=== PATIENT | female | born 1985 | race Caucasian/White ===

== ENCOUNTER 2018-06-10 10:02 | Inpatient (IN) ==
--- NOTE | 2018-06-10 11:07 | ED ---
HPI General Chief Complaint: Psychiatric Symptoms Stated Complaint: psych eval Time Seen by Provider: 06/10/18 10:49 Source: patient Mode of arrival: ambulatory Limitations: no limitations History of Present Illness HPI Narrative: The patient is a 33-year-old female who presents to the emergency department via private vehicle for depression and suicidal ideation. The patient thinks she has a history of depression as a teenager, does have one previous attempt at suicide when she was a teenager by taking pills. The patient states her last several months she has had fluctuating depression, however, it has been worse over the last several days. The patient has been having suicidal thoughts over the last several days, states that she gathered all of her pill bottles at home including pain medications and thought about taking them in an attempt to kill herself. However, the patient came to the emergency department to seek treatment. The patient tried calling a psychiatrist on an outpatient basis, however, stated the psychiatrist were not taking new patients at this time. The patient was unable to obtain an appointment with her primary physician for several weeks. The patient denies any significant life stressors at home including changing job, changing marital status, or recent relocation. The patient does have 2 children at home, ages 5 and 9, the patient states she thought about her children prior to taking any pills, therefore, seeks help today in the emergency department. MD complaint: Reports suicidal ideation and feels depressed Onset (ago): week(s) Duration: changing over time and getting worse History of same: Yes Relieving factors: none Exacerbating factors: none Associated psychiatric symptoms: Reports depression and suicidal ideation Associated symptoms: Reports denies other symptoms Treatments prior to arrival: Reports none If self harm: admits thoughts of self harm Related Data Home Medications Medication Instructions Recorded Confirmed levothyroxine [Synthroid] 125 mcg PO DAILY 06/10/18 06/10/18 liothyronine 20 mcg PO DAILY 06/10/18 06/10/18 Allergies Allergy/AdvReac Type Severity Reaction Status Date / Time No Known Allergies Allergy Verified 06/10/18 11:06 Review of Systems ROS: all other systems reviewed are negative [facility] Social History Social History Substance History: No History of Abuse Second Hand Smoke Exposure: No Smoking Status: Never smoker How Often Do You Have a Drink Containing Alcohol: Never Recent Travel in [facility] within the Last 8 Weeks: No Recent Out of Country Travel within the Last 8 Weeks: No Exam Narrative Exam Narrative: GENERAL: Awake, alert, pleasant 33-year-old female who appears her stated age and is tearful during examination. SKIN: Focused skin assessment warm/dry. HEAD: Atraumatic. Normocephalic. EYES: Pupils equal and round. No scleral icterus. No injection or drainage. ENT: No nasal bleeding or discharge. Mucous membranes pink and moist. NECK: Trachea midline. No JVD. CARDIOVASCULAR: Regular rate and rhythm. No murmur appreciated. RESPIRATORY: No accessory muscle use. Clear to auscultation. Breath sounds equal bilaterally. GASTROINTESTINAL: Abdomen soft, non-tender, nondistended. MUSCULOSKELETAL: No obvious deformities. No clubbing. No cyanosis. No edema. NEUROLOGICAL: Awake and alert. No obvious cranial nerve deficits. Motor grossly within normal limits. Normal speech. Nonfocal. Oriented x4. PSYCHIATRIC: Tearful. Insight and judgment appear normal. Course Initial Documented Vital Signs Temperature 98.3 F 06/10/18 10:09 Pulse Rate 93 H 06/10/18 10:09 Respiratory Rate 18 06/10/18 10:09 Blood Pressure 138/75 06/10/18 10:09 Pulse Oximetry 99 06/10/18 10:09 Last Documented Vital Signs Temperature 98.3 F 06/11/18 05:22 Pulse Rate 74 06/11/18 05:22 Respiratory Rate 18 06/11/18 05:22 Blood Pressure 103/56 L 06/11/18 05:22 Pulse Oximetry 97 06/11/18 05:22 Medical Decision Making MDM Narrative Medical decision making narrative: Labs are drawn and sent. TSH, free T4, free T3 were sent to lab. Psychiatric evaluation was ordered. The patient's TSH was less than 0.005. Free T4 was within normal limits. Free T3 is mildly elevated. The patient appears to have elevated free thyroid function, more likely to have hyperthyroidism as opposed to hypothyroidism with depression. I do not believe the patient's thyroid is the direct cause of her current depressive symptoms and suicidal ideation. The patient is medically cleared to be evaluated by psychiatry. Medical Screen Exam Complete: Yes Emergency Medical Condition: Yes Lab Data Result diagrams: 06/10/18 11:00 06/10/18 11:00 POC Results POC Urine Results Negative Lab Results 06/10/18 06/10/18 06/10/18 Range/Units 11:00 11:00 11:00 WBC 5.5 (4.0-11.0) th/mm3 RBC 4.18 (4.00-5.30) mil/mm3 Hgb 12.9 (11.6-15.3) gm/dL Hct 37.6 (35.0-46.0) % MCV 90.0 (80.0-100.0) fL MCH 30.9 (27.0-34.0) pg MCHC 34.3 (32.0-36.0) % RDW 13.6 (11.6-17.2) % Plt Count 251 (150-450) th/mm3 MPV 7.7 (7.0-11.0) fL Neut % (Auto) 59.9 (16.0-70.0) % Lymph % (Auto) 30.9 (9.0-44.0) % Davison % (Auto) 7.5 (0.0-8.0) % Eos % (Auto) 1.3 (0.0-4.0) % Baso % (Auto) 0.4 (0.0-2.0) % Neut # (Auto) 3.3 (1.8-7.7) th/mm3 Lymph # (Auto) 1.7 (1.0-4.8) th/mm3 Davison # (Auto) 0.4 (0.0-0.9) th/mm3 Eos # (Auto) 0.1 (0.0-0.4) th/mm3 Baso # (Auto) 0.0 (0.0-0.2) th/mm3 WBC Differential . Differential Comment Auto diff final Sodium 141 (136-145) meq/L Potassium 4.0 (3.5-5.1) meq/L Chloride 107 (98-107) meq/L Carbon Dioxide 27.5 (21.0-32.0) meq/L Anion Gap 7 (5-15) meq/L BUN 13 (7-18) mg/dL Creatinine 0.68 (0.50-1.00) mg/dL Estimated GFR Greater than 89 (>89) mL/min Random Glucose 85 (74-106) mg/dL Calcium 8.9 (8.5-10.1) mg/dL Magnesium 2.3 (1.5-2.5) mg/dL Total Bilirubin 0.3 (0.2-1.0) mg/dL AST 21 (15-37) U/L ALT 37 (10-53) U/L Alkaline Phosphatase 89 (45-117) U/L Total Protein 8.1 (6.4-8.2) g/dL Albumin 4.2 (3.4-5.0) g/dL TSH Less than 0.005 L (0.358-3.740) uIU/mL Free T4 1.24 (0.76-1.46) ng/dL Free T3 6.57 H (2.18-3.98) pg/mL Urine Opiates Screen Neg (Neg) Ur Barbiturates Screen Neg (Neg) Ur Amphetamines Screen Neg (Neg) U Benzodiazepines Scrn Neg (Neg) Urine Cocaine Screen Neg (Neg) U Cannabinoids Screen Neg (Neg) Serum Alcohol Less than 3 (0-5) mg/dL Discharge Plan Discharge Disposition Patient Disposition: 30 Still Patient Discharge Condition Condition: Stable Discharge Details Diagnosis: Depressive disorder Physicians Team ED Provider: Sunny Morales Primary Care Provider: David Lua Attending Provider: Caden Arreola Discharge Interventions Interventions: ED Discharge Assessment Last Done: 06/11/18 06:27 Status ED Status: Left Department Discharge Information Discharge Date/Time: 06/10/18 23:00
[2018-06-10 11:55] LABS: Baso % (Auto) 0.4 % (0.0-2.0); Eos # (Auto) 0.1 th/mm3 (0.0-0.4); Eos % (Auto) 1.3 % (0.0-4.0); Hematocrit 37.6 % (35.0-46.0); Hemoglobin 12.9 gm/dL (11.6-15.3); Lymph # (Auto) 1.7 th/mm3 (1.0-4.8); Lymph % (Auto) 30.9 % (9.0-44.0); Mean Corpuscular HGB Conc 34.3 % (32.0-36.0); Mean Corpuscular Hemoglobin 30.9 pg (27.0-34.0); Mean Platelet Volume 7.7 fL (7.0-11.0); Mono # (Auto) 0.4 th/mm3 (0.0-0.9); Mono % (Auto) 7.5 % (0.0-8.0); Neut # (Auto) 3.3 th/mm3 (1.8-7.7); Neut % (Auto) 59.9 % (16.0-70.0); Platelet Count 251 th/mm3 (150-450); Red Blood Count 4.18 mil/mm3 (4.00-5.30); Red Cell Distribution Width 13.6 % (11.6-17.2); White Blood Count 5.5 th/mm3 (4.0-11.0)
[2018-06-10 12:02] LABS: Amphetamine Screen,Urine Neg (Neg); Barbiturate Screen,Urine Neg (Neg); Cannabinoid Screen,Urine Neg (Neg); Cocaine Screen,Urine Neg (Neg)
[2018-06-10 12:07] LABS: Opiate Screen,Urine Neg (Neg)
[2018-06-10 12:14] LABS: Albumin 4.2 g/dL (3.4-5.0); Anion Gap 7 meq/L (5-15); Aspartate Aminotransferase 21 U/L (15-37); Blood Urea Nitrogen 13 mg/dL (7-18); Calcium 8.9 mg/dL (8.5-10.1); Carbon Dioxide 27.5 meq/L (21.0-32.0); Chloride 107 meq/L (98-107); Glomerular Filtration Rate Greater Than 89 mL/min (>89); Glucose,Random 85 mg/dL (74-106); Magnesium 2.3 mg/dL (1.5-2.5); Sodium 141 meq/L (136-145)
[2018-06-10 12:15] LABS: Alanine Aminotransferase 37 U/L (10-53)
[2018-06-10 12:24] LABS: Alkaline Phosphatase 89 U/L (45-117); Free T4 (Free Thyroxine) 1.24 ng/dL (0.76-1.46); Total Protein 8.1 g/dL (6.4-8.2); Triiodothyronine (T3) Free 6.57 pg/mL (2.18-3.98)
[2018-06-10] MEDS ORDERED: Acetaminophen 325 MG Tablet PO PRN (17:22)
[2018-06-10] MEDS ORDERED: Aluminum/Magnesium/Simethacone Susp 30 ML UDC PO PRN (17:54)
--- NOTE | 2018-06-10 18:07 | P.CONPSY ---
Provisional Diagnosis Admission Date: June 10, 2018 17:23 [place] I.: Bipolar disorder current episode depressed History of Present Illness Primary Care Provider: David Lua MD History of Present Illness: This is a 33-year-old , female who presents voluntarily to this facility reporting intermittent increasing episodes of suicidal ideation. She is previously known to [facility] being admitted in 2003 after multiple suicide attempts. Patient presents today reporting an approximate month long period of depression, anhedonia, insomnia, poor appetite, and states that is begun affecting her work. She claims that she has had these episodes on and off along with what she describes as some manic type episodes her "whole life". She does report that her mother has a history of bipolar disorder and is medicated for it. Her speech is clear, logical, organized, and of normal kerrie. She endorses intermittent suicidal ideation collected all of the medications in the house with thoughts of overdosing on them. She reports that she became scared due to the fact that she has 2 small children so she drove herself to the hospital. She denies homicidal ideation and auditory and visual hallucinations. There is no indication of psychosis nor of debbie. Her mood is depressed as is her affect. She becomes tearful during questioning. Additionally, she reports some intermittent anxiety attacks severe enough that she has had to leave restaurants. She states when they occur she feels like "I cannot breathe". States that it can take as long as an hour to calm herself down. She resides with her and 2 children. She works as a [employer]. She denies owning any firearms. She states that she is a non- smoker. She drinks socially. And denies any illicit substance use. Review of Systems All other systems reviewed negative except as stated in HPI [facility] - History History Provided By: Patient - Medical History Medical History: Medical History (Last Reviewed 06/10/18 @ 18:02 by ANAYELI Guerrero) Gallstone Nephrolithiasis Thyroid cancer - Surgical History Surgical History: Surgical History (Last Reviewed 06/10/18 @ 18:02 by ANAYELI Guerrero) H/O hand surgery H/O thyroidectomy History of - Tobacco History Second Hand Smoke Exposure: No Smoking Status: Never smoker - Alcohol History How Often Do You Have a Drink Containing Alcohol: Never - Substance Use History Substance History: No History of Abuse - Travel History Recent Travel in the [place] Within the Last 8 Weeks: No Recent Travel Out of the Country Within the Last 8 Weeks: No - Immunization History Tetanus Immunization: <5 Years Medications and Allergies Active Medications: Active Medications Acetaminophen (Tylenol) 650 mg PO Q4H PRN PRN Reason: PAIN SCALE 1 TO 10 Al Hydrox/Mg Hydrox/Simethicone (Mag-Al Plus Susp Liq) 30 ml PO Q6H PRN PRN Reason: DYSPEPSIA Allergies Allergy/AdvReac Type Severity Reaction Status Date / Time No Known Allergies Allergy Verified 06/10/18 11:06 Home Medications Medication Instructions Recorded Confirmed Type levothyroxine [Synthroid] 125 mcg PO DAILY 06/10/18 06/10/18 History liothyronine 20 mcg PO DAILY 06/10/18 06/10/18 History Exam Vital signs: Vital Signs 06/10/18 10:09 Temperature 98.3 F Pulse Rate 93 H Respiratory Rate 18 Blood Pressure 138/75 Pulse Oximetry 99 Intake & Output 06/09/18 06/10/18 06/10/18 18:59 06:59 18:59 Weight 200 lb - Constitutional mild distress, obese, cooperative - Routine HEENT Exam Head: Present: normocephalic - Routine Neurological Exam Present: alert, oriented X3 - Routine Psychiatric Exam Present: suicidal ideation, cooperative, good insight, good judgment, depressed Mental Status Examination Appearance: Well dressed/well groomed Consciousness: Alert Orientation: x4 Motor Activity: Normal gait Speech: Unremarkable Language: Adequate Fund of Knowledge: Adequate Attention and Concentration: Adequate Memory: Unremarkable Mood: Sad Affect: Sad Thought Process & Associations: Intact Thought Content: Appropriate Hallucination Type: None Delusion Type: None Suicidal Ideation: Yes Suicidal Plan: Yes Suicidal Intention: No Homicidal Ideation: No Homicidal Plan: No Homicidal Intention: No Insight: Fair Judgment: Impulsive Assessment and Plan - Assessment (1) Bipolar disorder current episode depressed Code(s): F31.30 - Bipolar disorder, current episode depressed, mild or moderate severity, unspecified Status: Acute - Plan Plan: Estimated LOS: [3-4] days and admitting this patient to a locked psychiatric inpatient unit for further evaluation and treatment as deemed necessary. After consulting with Dr. Arreola I am starting her on Lexapro 10 mg once daily. I have also obtained consent to initiate Seroquel to target her anxiety and her bipolar disorder. However, as these medications are new to her I will not start her on the Seroquel until we can is certain she will tolerate the Lexapro without side effects. Consent has been obtained for both medications as well as Atarax 50 mg every 6 hours as needed for anxiety and diphenhydramine 50 mg at bedtime as needed for insomnia. Patient is signing herself in voluntarily. Justification for Continued Inpatient Stay: Moving this patient to a less restrictive environment would likely result in decompensation.
[2018-06-11] MEDS: Escitalopram 10 MG Tablet PO SCH (09:17)
[2018-06-11 10:49] LABS: Anion Gap 8 meq/L (5-15); Blood Urea Nitrogen 13 mg/dL (7-18); Carbon Dioxide 27.8 meq/L (21.0-32.0); Chloride 104 meq/L (98-107); Cholesterol 84 mg/dL (120-200); Glomerular Filtration Rate Greater Than 89 mL/min (>89); Glucose,Random 87 mg/dL (74-106); Potassium 4.3 meq/L (3.5-5.1); Sodium 140 meq/L (136-145)
[2018-06-11 10:52] LABS: Chol/HDL Ratio 2.41 Ratio; HDL Cholesterol 34.8 mg/dL (40.0-60.0); LDL Cholesterol,Calculated 40 mg/dL (0-99); Triglycerides 45 mg/dL (42-150)
--- NOTE | 2018-06-11 14:03 | P.HPPSY ---
Provisional Diagnosis Admission Date: June 10, 2018 17:23 [place] I.: Bipolar disorder current episode depressed, adjustment disorder with mixed disturbances of emotion and conduct Competence Certification of Person's Competence To Provide Express and Informed Consent I have personally examined Roopa Carbajal, a person being served at [facility] on, June 11, 2018 1348. Express and informed consent means consent voluntarily given in writing, by a competent person, after sufficient explanation and disclosure of the subject matter involved to enable the person to make a knowing and willful decision without any element of force, fraud, deceit, duress, or other form of constraint or coercion. This person is 18 years of age or older, is not now known to be incompetent to consent to treatment with a guardian advocate, and does not have a health care surrogate or proxy currently making medical treatment decisions. I have found this person to be one of the following: [xxxx] Competent to provide express and informed consent, as defined above, for voluntary admission to this facility and is competent to provide express and informed consent for treatment. He/she has the consistent capacity to make well reasoned, willful, and knowing decisions concerning his or her medical or mental health treatment. The person fully and consistently understands the purpose of the admission for examination/placement and is fully capable of personally exercising all rights assured [place] Incompetent to provide express and informed consent to voluntary admission, and this is incompetent to provide express and informed consent to treatment. The person must be transferred to involuntary status and a petition for a guardian advocate filed with the Circuit Court. [] Refusing to provide express and informed consent to voluntary admission but is competent to provide express and informed consent for treatment. The person must be discharged or transferred to involuntary status. Form shall be completed within 24 hours of a person's arrival at the receiving facility and filed in the clinical record of each person: 1. Admitted on a voluntary basis 2. Permitted to provide express and informed consent to his/her own treatment 3. Allowed to transfer from involuntary to voluntary status 4. Prior to permitting a person to consent to his or her own treatment after having been previously found incompetent to consent to treatment. History of Present Illness Capacity: Has capacity History of Present Illness: Patient is a 33-year-old white female comes with history of depression increasing over the past 3-4 weeks with initial and mid insomnia, slight decreased appetite occasional crying spells. There is some decreased energy, decreased concentration and attention, some increased irritability and short temperedness. She denies any alcohol or drug use with this. She states she has been some vague suicidal ideation but that is now gone and there is no intent to harm herself. She denies voices or visions with this. She denies self medication. However the patient does state that she was with her girlfriends about 4-5 weeks ago he went to a bar she became quite intoxicated and had one episode of unprotected sex with a man she is never really knew. This is been praying on her mind also. Patient has a past history of behavioral issues has been seen at [facility] as a teenager placed on lithium for a brief period of time. He has not seen a psychiatrist or counselor since then. He has a family history of bipolar disorder with patient's mother. Patient denies any physical or sexual abuse as a as a child. Patient has had thyroid cancer has thyroid moved his arm replacement therapy at this time. Patient has 2 children both under 10 years of age. Patient is a few credits short of a bachelor's degree in science. Patient is showing some insight into her need for counseling and to be on a medication. She says she had a fairly good night sleep last night. For now we will continue treatment no change consider discharge tomorrow if she remains improving - Inpatient Certification I certify that the inpatient services were ordered in accordance with Medicare regulations governing the order. This includes certification that hospital inpatient services are reasonable and necessary and in the case of services not specified as inpatient-only under 42 CFR 419.22(n), that they are appropriately provided as inpatient services in accordance to with the 2-midnight benchmark under 43 CFR 412.3(e) I certify that inpatient psychiatric hospital services are medically necessary. Evaluation and treatment and/or diagnostic testing are expected to improve the patient's condition. The patient needs on a daily basis, active treatment furnished directly by or requiring the supervision of inpatient psychiatric facility personnel. Estimated Total Length of Stay (Days): 4 Plans for Post Hospital Care: Home Review of Systems Patient thyroidectomy secondary to thyroid cancer a few years ago All other systems reviewed negative except as stated in HPI [facility] - History History Provided By: Patient, Medical Record - Medical History Medical History: Medical History (Last Reviewed 06/11/18 @ 13:59 by Caden Arreola MD) Gallstone Nephrolithiasis Thyroid cancer - Surgical History Surgical History: Surgical History (Last Reviewed 06/11/18 @ 13:59 by Caden Arreola MD) H/O hand surgery H/O thyroidectomy History of - Family History Family History: Family History (Last Updated 06/11/18 @ 13:59 by Caden Arreola MD) Other Bipolar disorder - Social History I have reviewed the patient's Social History: Yes - Tobacco History Second Hand Smoke Exposure: No Smoking Status: Never smoker - Alcohol History How Often Do You Have a Drink Containing Alcohol: Never - Substance Use History Substance History: No History of Abuse - Travel History Recent Travel in the [place] Within the Last 8 Weeks: No Recent Travel Out of the Country Within the Last 8 Weeks: No - Immunization History Tetanus Immunization: <5 Years Hx Influenza Vaccine This Season: No Quality Measures - Psychiatric History Psychological trauma history: Patient denies Violence risk to others in the last 6 months: Low Violence risk to self in the last 6 months: Low - Substance Abuse History Drug or alcohol use in the past 12 months: Patient pins drinking 3 weeks ago - Patient Strengths Patient's strengths (minimum of 2): Verbal cooperative able access healthcare Medications and Allergies Active Medications: Active Medications Acetaminophen (Tylenol) 650 mg PO Q4H PRN PRN Reason: PAIN SCALE 1 TO 10 Last Admin: 06/10/18 18:09 Dose: 650 mg Al Hydrox/Mg Hydrox/Simethicone (Mag-Al Plus Susp Liq) 30 ml PO Q6H PRN PRN Reason: DYSPEPSIA Al Hydroxide/Mg Hydroxide (Milk Of Magnesia Liq) 30 ml PO Q12H PRN PRN Reason: Mild Constipation Diphenhydramine HCl (Benadryl) 50 mg PO HS PRN PRN Reason: INSOMNIA Escitalopram Oxalate (Lexapro) 10 mg PO DAILY PILO Last Admin: 06/11/18 09:17 Dose: 10 mg Hydroxyzine HCl (Atarax) 50 mg PO Q6H PRN PRN Reason: ANXIETY Padimate O (Chapstick) 1 applicatio TOPICAL UNSCH PRN PRN Reason: DRY CHAPPED LIPS Allergies Allergy/AdvReac Type Severity Reaction Status Date / Time No Known Allergies Allergy Verified 06/10/18 11:06 Home Medications Medication Instructions Recorded Confirmed Type levothyroxine [Synthroid] 125 mcg PO DAILY 06/10/18 06/10/18 History liothyronine 20 mcg PO DAILY 06/10/18 06/10/18 History Results - Labs CBC & Chem 7: 06/10/18 11:00 06/11/18 09:15 Labs: Laboratory Results - last 24 hr 06/11/18 09:15 Sodium 140 Potassium 4.3 Chloride 104 Carbon Dioxide 27.8 Anion Gap 8 BUN 13 Creatinine 0.71 Estimated GFR Greater than 89 Random Glucose 87 Calcium 9.0 Triglycerides 45 Cholesterol 84 L LDL Cholesterol, Calc 40 HDL Cholesterol 34.8 L Cholesterol/HDL Ratio 2.41 Exam Vital signs: Vital Signs 06/10/18 18:27 06/10/18 20:25 06/11/18 05:22 Temperature 98.7 F 98.6 F 98.3 F Pulse Rate 101 H 87 74 Respiratory Rate 16 18 Blood Pressure 129/85 101/70 103/56 L Pulse Oximetry 98 97 97 Intake & Output 06/10/18 06/11/18 06/11/18 18:59 06:59 18:59 Intake Total 360 / 360 Balance 360 / 360 Weight 90.718 kg 90.6 kg Intake: Oral 360 / 360 Other: Weight On Admission 90.71 kg Narrative: Patient seen in her room she is in no acute distress, no complaints of chest pain no complaints of abdominal pain, patient no respiratory distress. Patient moving all 4 extremities without difficulty Mental Status Examination Appearance: Appropriate, Well dressed/well groomed Consciousness: Alert Orientation: x4 Motor Activity: Normal gait Speech: Unremarkable Language: Adequate Fund of Knowledge: Adequate Attention and Concentration: Adequate Memory: Unremarkable Mood: Sad Affect: Other (Good range and intensity) Thought Process & Associations: Intact Thought Content: Appropriate Hallucination Type: None Delusion Type: None Suicidal Ideation: Yes (Denies at this time) Suicidal Plan: Yes (Denies at this time) Suicidal Intention: No Homicidal Ideation: No Homicidal Plan: No Homicidal Intention: No Insight: Fair Judgment: Impulsive Assessment and Plan - Assessment (1) Adjustment disorder with mixed disturbance of emotions and conduct Code(s): F43.25 - Adjustment disorder with mixed disturbance of emotions and conduct Status: Acute - Plan Plan: Patient depression is lifting somewhat she is showing some increased insight. Now denies suicidality or voices. The patient continues to improve consider discharge tomorrow Justification for Continued Inpatient Stay: At this time patient would decompensate a place to a lower level of care Discharge Planning: Possible discharge home tomorrow Request Healthcare Surrogate/Guardian Advocate?: No
[2018-06-11 16:36] LABS: Hemoglobin A1c 4.9 % (4.3-6.0)
[2018-06-11 17:03] VITALS: O2SAT 98
[2018-06-12 05:51] VITALS: BP 117/59; PULSE 99; RESP 15; TEMP 97.5
[2018-06-12] MEDS: Escitalopram 10 MG Tablet PO SCH (09:06)
--- NOTE | 2018-06-12 12:12 | P.DSPSY ---
Psychiatry Discharge Summary Inpatient Psychiatric care?: Yes Advance Directives: No Mental Health Advance Directive: No Health Care Proxy: No - Admission Admission Date: June 10, 2018 17:23 - Admission Diagnosis (1) Adjustment disorder with mixed disturbance of emotions and conduct Code(s): F43.25 - Adjustment disorder with mixed disturbance of emotions and conduct Brief History: Patient is a 33-year-old white female comes with history of depression increasing over the past 3-4 weeks with initial and mid insomnia, slight decreased appetite occasional crying spells. There is some decreased energy, decreased concentration and attention, some increased irritability and short temperedness. She denies any alcohol or drug use with this. She states she has been some vague suicidal ideation but that is now gone and there is no intent to harm herself. She denies voices or visions with this. She denies self medication. However the patient does state that she was with her girlfriends about 4-5 weeks ago he went to a bar she became quite intoxicated and had one episode of unprotected sex with a man she is never really knew. This is been praying on her mind also. Patient has a past history of behavioral issues has been seen at [facility] as a teenager placed on lithium for a brief period of time. He has not seen a psychiatrist or counselor since then. He has a family history of bipolar disorder with patient's mother. Patient denies any physical or sexual abuse as a as a child. Patient has had thyroid cancer has thyroid moved his arm replacement therapy at this time. Patient has 2 children both under 10 years of age. Patient is a few credits short of a bachelor's degree in science. Patient is showing some insight into her need for counseling and to be on a medication. She says she had a fairly good night sleep last night. For now we will continue treatment no change consider discharge tomorrow if she remains improving Tobacco Use In Past 30 Days: No How Often Do You Have a Drink Containing Alcohol: Monthly or less Hospital Course: She hospital course was uneventful, patient been compliant with medication and cooperative on the unit. Patient is seen today she continues to denies suicidality homicidality voice or visions. States she is willing to get counseling in the community to help her resolve issues related to relationships and how to discuss her issues with her . She also realizes she would need to abstain from alcohol or other drugs. Thus patient will be discharged today to herself follow-up mental health services in community through her HMO. - Discharge Discharge Date: 06/12/18 - Discharge Diagnosis (1) Adjustment disorder with mixed disturbance of emotions and conduct Diagnosis: Principal Code(s): F43.25 - Adjustment disorder with mixed disturbance of emotions and conduct Status: Acute Discharge Disposition: Home - Discharge Instructions Discharge Diet: Regular Diet Activities You Can Perform: Regular- No Restrictions - Discharge Time > 30 minutes Mental Status Examination Appearance: Appropriate, Well dressed/well groomed Consciousness: Alert Orientation: x4 Motor Activity: Normal gait Speech: Unremarkable Language: Adequate Fund of Knowledge: Adequate Attention and Concentration: Adequate Memory: Unremarkable Mood: Sad Affect: Other (Good range and intensity) Thought Process & Associations: Intact Thought Content: Appropriate Hallucination Type: None Delusion Type: None Suicidal Ideation: Yes (Denies at this time) Suicidal Plan: Yes (Denies at this time) Suicidal Intention: No Homicidal Ideation: No Homicidal Plan: No Homicidal Intention: No Insight: Fair Judgment: Impulsive Discharge/Advance Care Plan - Results Vital Signs: Last Vital Signs Temp 97.5 F L 06/12/18 05:50 Pulse 99 H 06/12/18 05:50 Resp 15 06/12/18 05:50 BP 117/59 L 06/12/18 05:50 Pulse Ox 98 06/11/18 17:02 Lab Results: Abnormal Lab Results 06/11/18 09:15 Hemoglobin A1c 4.9 Laboratory Results Hemoglobin A1c 4.9 % (4.3-6.0) 06/11/18 09:15 Triglycerides 45 mg/dL (42-150) 06/11/18 09:15 Cholesterol 84 mg/dL (120-200) L 06/11/18 09:15 LDL Cholesterol, Calc 40 mg/dL (0-99) 06/11/18 09:15 HDL Cholesterol 34.8 mg/dL (40.0-60.0) L 06/11/18 09:15 TSH Less than 0.005 uIU/mL (0.358-3.740) L 06/10/18 11:00 Free T4 1.24 ng/dL (0.76-1.46) 06/10/18 11:00 Free T3 6.57 pg/mL (2.18-3.98) H 06/10/18 11:00 Summary of Procedures: None done Pending Results: None - Medications Number of antipsychotic medications at discharge: 0 - Discharge Care Plan Goals to Promote Your Health: * To prevent worsening of your condition and complications * To maintain your health at the optimal level Directions to Meet Your Goals: Take your medications as prescribed Follow your dietary instruction Follow activity as directed Keep your appointments as scheduled Take your immunizations and boosters as scheduled If your symptoms worsen call your PCP, if no PCP go to Urgent Care Center or Emergency Room For 26/02 questions related to your inpatient stay or results of tests pending at discharge, please contact Dr. Caden Arreola MD at Smoking is Dangerous to Your Health. Avoid second hand smoking
== END 2018-06-12 16:00 | disposition home or self-care (01) ==
LOC: NEPD 10:02 → NEDA 17:23 → H260 20:25
PROVIDERS: ADMIT Psychiatry & Neurology Psychiatry; ATTEND Psychiatry & Neurology Psychiatry